=== PATIENT | female | born 1975 | race Caucasian/White ===

== ENCOUNTER → 2018-11-28 | Day surgery (SDC) | payer OTHER ==
[~2018-11-28] MED LIST: ALDOMET250 MG PO; ASA81 MG PO; FOLIC ACID1 MG PO; LABETALOL HCL300 MG PO; VASOTEC10 MG NGT
== END | disposition home or self-care (01) ==
LOC: CIR.AMB 13:08
DX: O02.1 Missed abortion (principal); Z3A.01 Less than 8 weeks gestation of pregnancy